=== PATIENT | female | born 1980 | race Two or more races ===

== ENCOUNTER 2018-01-12 09:05 | Emergency (ER) | payer OTHER ==
[2018-01-12 09:10] VITALS: BP 121/82; PULSE 112; TEMP 97.7; BMI 27.4
[2018-01-12] MEDS ORDERED: KETOROLAC TROMETHAMINE 60 MG/2 ML VIAL IM ONE (09:25)
[2018-01-12 09:45] LABS: URINE APPEARANCE CLOUDY; URINE BILIRUBIN NEGATIVE (<2.0 mg/dL); URINE COLOR YELLOW; URINE GLUCOSE (UA) NEGATIVE (NEGATIVE); URINE KETONE NEGATIVE (NEGATIVE); URINE LEUK ESTERASE NEGATIVE (NEGATIVE); URINE NITRITE NEGATIVE (NEGATIVE); URINE UROBILINOGEN NEGATIVE mg/dL (0.2-1.0)
[2018-01-12 09:49] LABS: URINE PROTEIN 1+ (NEGATIVE)
[2018-01-12] MEDS ORDERED: KETOROLAC TROMETHAMINE 60 MG/2 ML VIAL ONE (09:54)
[2018-01-12 10:13] LABS: EPI CELLS RARE /HPF (FEW); URINE BACTERIA RARE /hpf (NONE SEEN); URINE HYALINE CAST 4 /lpf; URINE MUCUS MANY
--- NOTE | 2018-01-12 10:50 | PDOC ---
History of Present Illness - General Chief Complaint: Back Pain Stated Complaint: BACK/LEG PAIN Time Seen by Provider: 01/12/18 09:13 History Source: Patient Exam Limitations: No Limitations - History of Present Illness Initial Comments: 01/12/18 10:42 CHIEF COMPLAINT: Lower back pain HISTORY OF PRESENT ILLNESS: 37 y/o female denies any significant medical history reports low back pain radiating down right lateral lower leg for 8 days. Denies any trauma. No neurosensory deficits, no bowel or bladder difficulty incontinence or urinary retention, no saddle anesthesia, no footdrop. No history of IVDU or history of cancer. REVIEW OF SYSTEMS: GENERAL: Afebrile, denies any weakness RESPIRATORY: No cough, wheezing, or hemoptysis. CARDIAC: No chest pain or shortness of breath MUSCULOSKELETAL: Pain to generalized lower back. No point tenderness. Pain worse on right than left. SKIN : No erythema, no bruising, no deformity. GI/: Denies any abdominal pain, no urinary difficulty, incontinence or urinary retention. RECTAL: Denies any difficulty this A.m. NEUROLOGICAL: Denies any numbness or tingling. No neurosensory deficits. PHYSICAL EXAM: GENERAL: The patient is awake, alert, and fully oriented, in no acute distress. RESPIRATORY: Lungs clear bilaterally, no rhonchi wheezes or crackles CARDIAC: S1-S2 audible, no murmur rub or gallop MUSCULOSKELETAL: Pain to generalized lower back, nonradiating, no tingling or sensory deficit. Less than 2 second cap refill, +4 popliteal and pedal pulses. GI/: Abdomen soft, nontender, nondistended. No rebound tenderness. No masses palpable. MUSCULOSKELETAL: No spinal point tenderness. Normal reflexive and no deficits to sensation or strength. RECTAL: Deferred patient with no neurological findings SKIN: Warm, Dry, normal turgor, no erythema, no edema no bruising. Past History - Past Medical History Allergies/Adverse Reactions: Allergies Allergy/AdvReac Type Severity Reaction Status Date / Time No Known Allergies Allergy Verified 01/12/18 09:07 Home Medications: Ambulatory Orders Hydrochlorothiazide 25 mg PO DAILY 07/30/12 Acetaminophen/Caffeine/Butalb [Fioricet -] 1 tab PO Q4H PRN 02/21/15 Aripiprazole [Abilify] 5 mg PO DAILY 02/21/15 Topiramate [Topamax] 100 mg PO HS 02/21/15 Cyclobenzaprine HCl [Flexeril 10 mg] 10 mg PO BID PRN #20 tablet MDD 2 01/12/18 Diclofenac Sodium 75 mg PO ASDIR 01/12/18 Escitalopram Oxalate [Lexapro -] 20 mg PO DAILY 01/12/18 Methylprednisolone [Medrol Dose Olvin] 4 mg PO ASDIR #21 tablet 01/12/18 Metoprolol Mckee/Hydrochlorothiaz [Metoprolol ER-Hctz 25-12.5 mg] 1 mg PO ASDIR 04/24 Tramadol HCl 50 mg PO ASDIR 01/12/18 COPD: No HTN: Yes Psychiatric Problems: Yes (ANXIETY.) - Surgical History Abdominal Surgery: Yes - Suicide/Smoking/Psychosocial Hx Smoking Status: No Smoking History: Never smoked Have you smoked in the past 12 months: No Number of Cigarettes Smoked Daily: 0 Information on smoking cessation initiated: No Hx Alcohol Use: No Drug/Substance Use Hx: No Substance Use Type: None *Physical Exam - Vital Signs Last Vital Signs Temp Pulse Resp BP Pulse Ox 97.7 F 112 H 18 121/82 100 01/12/18 09:08 01/12/18 09:08 01/12/18 09:08 01/12/18 09:08 01/12/18 09:08 ED Treatment Course - ADDITIONAL ORDERS Additional order review: Laboratory Results 01/12/18 09:25 Urine Color Yellow Urine Appearance Cloudy Urine pH 5.0 Ur Specific [place] 1.030 Urine Protein 1+ H Urine Glucose (UA) Negative Urine Ketones Negative Urine Blood Negative Urine Nitrite Negative Urine Bilirubin Negative Urine Urobilinogen Negative Ur Leukocyte Esterase Negative Urine WBC (Auto) 8 Urine RBC (Auto) 6 Ur Epithelial Cells Rare Urine Bacteria Rare Hyaline Casts 4 Urine Mucus Many - Medications Given in the ED: ED Medications Discontinued Medications Generic Name Dose Route Start Last Admin Trade Name Freq PRN Reason Stop Dose Admin Ketorolac Tromethamine 60 mg 01/12/18 09:25 01/12/18 09:57 Toradol Injection - IM 01/12/18 09:26 60 mg ONCE ONE Administration Medical Decision Making - Medical Decision Making 01/12/18 10:45 A/P: Patient with right lateral lower back pain radiating down right lateral leg consistent with sciatica. Denies any trauma. There is no neurosensory deficits. Denies any urinary symptoms. Urinalysis sent. Laboratory Results - last 24 hr 01/12/18 09:25 Urine Color Yellow Urine Appearance Cloudy Urine pH 5.0 Ur Specific [place] 1.030 Urine Protein 1+ H Urine Glucose (UA) Negative Urine Ketones Negative Urine Blood Negative Urine Nitrite Negative Urine Bilirubin Negative Urine Urobilinogen Negative Ur Leukocyte Esterase Negative Urine WBC (Auto) 8 Urine RBC (Auto) 6 Ur Epithelial Cells Rare Urine Bacteria Rare Hyaline Casts 4 Urine Mucus Many We'll give Toradol 60 mg IM, then reevaluate. She reports pain is decreased after the Toradol will DC patient home on Flexeril and Medrol Dosepak follow-up with her primary care doctor is already having an MRI is waiting for approval. I discussed the physical exam findings, ancillary test results and final diagnoses with the patient. I answered all of the patient's questions. The patient was satisfied with the care received and felt comfortable with the discharge plan and treatment plan. The patient will call to arrange follow-up and will return to the Emergency Department with any new, persistent or worsening symptoms. *DC/Admit/Observation/Transfer Diagnosis at time of Disposition: Sciatic leg pain - Discharge Dispostion Disposition: HOME Condition at time of disposition: Stable Decision to Admit order: No - Prescriptions Prescriptions: Cyclobenzaprine HCl [Flexeril 10 mg] 10 mg PO BID PRN #20 tablet MDD 2 PRN Reason: Pain Methylprednisolone [Medrol Dose Olvin] 4 mg PO ASDIR #21 tablet - Referrals Referrals: Ruthann Vu MD [Primary Care Provider] - - Patient Instructions Printed Discharge Instructions: DI for Back Pain With Sciatica Additional Instructions: 1. Please return to the emergency department with any numbness, tingling, weakness, numbness or tingling to groin or legs, or loss of bowel or bladder function. 2. Use pain medication as ordered. 3. Follow up with Dr. Piedra for evaluation within a week if no improvement. 4. Ice to lower back 5. Refrain from lifting anything above 10 pounds, until pain resolved. - Post Discharge Activity Forms/Work/School Notes: Back to Work
== END 2018-01-12 11:18 | disposition home or self-care (01) ==
LOC: JERFT 09:05
PROC: 3E0233Z Introduction of Anti-inflammatory into Muscle, Percutaneous Approach (ICD-10-PCS; principal; 2018-01-12)
DX: M54.41 Lumbago with sciatica, right side (principal); I10 Essential (primary) hypertension; F41.9 Anxiety disorder, unspecified
CPT/HCPCS: 81003; 81015; 96372; 99281-25

== ENCOUNTER 2019-07-13 16:08 | Emergency (ER) | payer OTHER ==
[2019-07-13 16:16] VITALS: BP 123/78; PULSE 100; TEMP 99; BMI 30.9
[2019-07-13] MEDS ORDERED: DEXAMETHASONE LIQUID 0.5 MG/5 ML PO ONE (16:16)
--- NOTE | 2019-07-13 16:22 | PDOC ---
History of Present Illness - General Stated Complaint: SORE THROAT Time Seen by Provider: 07/13/19 16:13 History Source: Patient Exam Limitations: No Limitations - History of Present Illness Initial Comments: 07/13/19 16:23 This is a 38yoF without comorbidities with sore throat for 2 days. Daughter with similar symptoms. Is this a multiple visit Asthma Patient?: No Past History - Past Medical History Allergies/Adverse Reactions: Allergies Allergy/AdvReac Type Severity Reaction Status Date / Time No Known Allergies Allergy Verified 07/13/19 16:15 Home Medications: Ambulatory Orders Hydrochlorothiazide 25 mg PO DAILY 07/30/12 Acetaminophen/Caffeine/Butalb [Fioricet -] 1 tab PO Q4H PRN 02/21/15 Aripiprazole [Abilify] 5 mg PO DAILY 02/21/15 Topiramate [Topamax] 100 mg PO HS 02/21/15 Cyclobenzaprine HCl [Flexeril 10 mg] 10 mg PO BID PRN #20 tablet MDD 2 01/12/18 Diclofenac Sodium 75 mg PO ASDIR 01/12/18 Escitalopram Oxalate [Lexapro -] 20 mg PO DAILY 01/12/18 Methylprednisolone [Medrol Dose Olvin] 4 mg PO ASDIR #21 tablet 01/12/18 Metoprolol Mckee/Hydrochlorothiaz [Metoprolol ER-Hctz 25-12.5 mg] 1 mg PO ASDIR 04/24 Tramadol HCl 50 mg PO ASDIR 01/12/18 Amoxicillin - [Amoxicillin 500mg Capsule -] 500 mg PO BID #20 capsule 07/13/19 COPD: No HTN: Yes Psychiatric Problems: Yes (ANXIETY.) - Surgical History Abdominal Surgery: Yes - Psycho Social/Smoking Cessation Hx Smoking Status: No Smoking History: Never smoked Have you smoked in the past 12 months: No Number of Cigarettes Smoked Daily: 0 Information on smoking cessation initiated: No Hx Alcohol Use: No Drug/Substance Use Hx: No Substance Use Type: None Review of Systems - Review of Systems Able to Perform ROS?: Yes Is the patient limited Turkmen proficient: No Constitutional: No: Symptoms Reported HEENTM: Yes: Throat Pain, Throat Swelling Respiratory: No: Symptoms reported Cardiac (ROS): No: Symptoms Reported ABD/GI: No: Symptoms Reported : No: Symptoms Reported Musculoskeletal: No: Symptoms Reported Integumentary: No: Symptoms Reported Neurological: No: Symptoms reported *Physical Exam - Vital Signs Last Vital Signs Temp Pulse Resp BP Pulse Ox 99 F 100 H 18 123/78 99 07/13/19 16:14 07/13/19 16:14 07/13/19 16:14 07/13/19 16:14 07/13/19 16:14 - Physical Exam General Appearance: Yes: Appropriately Dressed. No: Apparent Distress HEENT: positive: Pharyngeal Erythema, Tonsillar Exudate, Tonsillar Erythema Neck: positive: Lymphadenopathy (R), Lymphadenopathy (L) Respiratory/Chest: positive: Lungs Clear, Normal Breath Sounds Cardiovascular: positive: Regular Rhythm, S1, S2, Tachycardia. negative: Edema , Murmur Gastrointestinal/Abdominal: positive: Normal Bowel Sounds, Soft. negative: Tender Medical Decision Making - Medical Decision Making 07/13/19 16:21 A/P: 38yo F with pharyngitis 2+ tonsils b/l +tonsillar exudate +halitosis +tender anterior cervical lymphadenopathy Given high likelihood of strep infection I will treat prophylactally. Discharge Discharge - Discharge Information Problems reviewed: Yes Clinical Impression/Diagnosis: Pharyngitis Qualifiers: Pharyngitis/tonsillitis etiology: unspecified etiology Qualified Code(s): J02.9 - Acute pharyngitis, unspecified Condition: Stable Disposition: HOME - Admission No - Additional Discharge Information Prescriptions: Amoxicillin - [Amoxicillin 500mg Capsule -] 500 mg PO BID #20 capsule - Follow up/Referral - Patient Discharge Instructions Additional Instructions: Drink plenty of fluids. Salt water garggles. Take tylenol or motrin for fevers or pain. Follow general house worker's instructions for dosage. Take amoxicillin 500mg twice a day until all medication has been completed. You ER visit is incomplete until you follow up with your doctor. Buy a new toothbrush today when you sheepskin pickler your medication. On Thursday, throw away your current toothbrush and start using the new one. No sharing of utensils, cups, or drinking bottles. Return to ER for any new or worsening symptoms. - Post Discharge Activity Work/Back to School Note: Back to Work
[2019-07-13] MEDS ORDERED: DEXAMETHASONE SOD PHOSPHATE 10 MG/1 ML VIAL ONE (17:34)
== END 2019-07-13 17:40 | disposition home or self-care (01) ==
LOC: JERFT 16:08
DX: J02.9 Acute pharyngitis, unspecified (principal); I10 Essential (primary) hypertension; F41.9 Anxiety disorder, unspecified
CPT/HCPCS: 99281-25

== ENCOUNTER 2022-04-20 12:09 | Emergency (ER) | payer OTHER ==
[2022-04-20 12:15] VITALS: BP 129/81; PULSE 80; RESP 18; TEMP 98; BMI 34.3
[2022-04-20] MEDS ORDERED: ONDANSETRON 4 MG/2 ML VIAL IVPUSH ONE (12:48)
[2022-04-20] MEDS ORDERED: SODIUM CHLORIDE 0.9% 500 ML INFUS.BAG IV ONE (12:48)
[2022-04-20] MEDS ORDERED: MECLIZINE HCL 25 MG TABLET (FP) PO ONE ×2 (12:48→17:00)
[2022-04-20] MEDS ORDERED: MECLIZINE HCL 25 MG TABLET (FP) ONE ×2 (12:53→17:31)
[2022-04-20] MEDS ORDERED: ONDANSETRON 4 MG/2 ML VIAL ONE (12:53)
[2022-04-20 13:16] LABS: BASO % 0.4 % (0-2.0); EOS % 0.3 % (0-4.5); HEMATOCRIT 39.1 % (32.4-45.2); HEMOGLOBIN 13.1 GM/dL (10.7-15.3); LYMPH % 7.7 % (8-40); MCH 27.8 pg (25.7-33.7); MCHC 33.5 g/dl (32.0-36.0); MEAN PLT VOLUME 8.5 fl (7.5-11.1); MONO % 4.2 % (3.8-10.2); NEUT % 87.4 % (42.8-82.8); PLATELET COUNT 364 10^3/uL (134-434); RBC 4.71 M/mm3 (3.60-5.2); RDW 15.7 % (11.6-15.6); WHITE BLOOD COUNT 16.3 K/mm3 (4.0-10.0)
[2022-04-20 13:20] LABS: INR 1.01 (0.83-1.09); PROTHROMBIN TIME (PATIENT) 11.6 SEC (9.7-13.0)
[2022-04-20 13:27] LABS: BLOOD UREA NITROGEN 11.5 mg/dL (7-18); CALCIUM 9.1 mg/dL (8.5-10.1)
[2022-04-20 13:30] LABS: CREATININE 0.7 mg/dL (0.55-1.3)
[2022-04-20 13:32] LABS: BILIRUBIN,TOTAL 0.3 mg/dL (0.2-1); TOT PROT 7.6 g/dl (6.4-8.2)
[2022-04-20] MEDS ORDERED: ACETAMINOPHEN 1000 MG/100 ML BAG IVPB ONE (14:15)
[2022-04-20] MEDS ORDERED: diazePAM CARPU-JECT 10 MG/2 ML DISP.SYRIN IVPUSH ONE ×2 (14:35→17:00)
[2022-04-20] MEDS ORDERED: ASPIRIN 81 MG CHEWABLE TABLETS PO ONE (14:35)
[2022-04-20] MEDS ORDERED: ASPIRIN 81 MG CHEWABLE TABLETS ONE (14:43)
[2022-04-20] MEDS ORDERED: diazePAM CARPU-JECT 10 MG/2 ML DISP.SYRIN ONE ×2 (14:43→17:31)
[2022-04-20] MEDS ORDERED: ACETAMINOPHEN INJECTION 100 ML IVPB ONE (14:43)
[2022-04-20 15:00] LABS: PH,URINE 5.5 (5.0-8.0); URINE APPEARANCE CLEAR; URINE BILIRUBIN NEGATIVE (NEGATIVE); URINE COLOR YELLOW; URINE GLUCOSE (UA) NEGATIVE (NEGATIVE); URINE KETONE NEGATIVE (NEGATIVE); URINE LEUK ESTERASE NEGATIVE (NEGATIVE); URINE NITRITE NEGATIVE (NEGATIVE); URINE PROTEIN NEGATIVE (NEGATIVE); URINE UROBILINOGEN 0.2 mg/dL (0.2-1.0)
[2022-04-20] MEDS ORDERED: VALPROATE SODIUM 500 MG/5 ML VIAL IVPB ONE (16:11)
[2022-04-20] MEDS ORDERED: VALPROATE SODIUM 500 MG/5 ML VIAL ONE (17:32)
== END 2022-04-20 19:59 | disposition home or self-care (01) ==
LOC: JER 12:09
PROC: 3E0333Z Introduction of Anti-inflammatory into Peripheral Vein, Percutaneous Approach (ICD-10-PCS; principal; 2022-04-20)
PROC: 3E033NZ Introduction of Analgesics, Hypnotics, Sedatives into Peripheral Vein, Percutaneous Approach (ICD-10-PCS; 2022-04-20)
PROC: 3E033NZ Introduction of Analgesics, Hypnotics, Sedatives into Peripheral Vein, Percutaneous Approach (ICD-10-PCS; 2022-04-20)
PROC: 3E033GC Introduction of Other Therapeutic Substance into Peripheral Vein, Percutaneous Approach (ICD-10-PCS; 2022-04-20)
PROC: 3E033GC Introduction of Other Therapeutic Substance into Peripheral Vein, Percutaneous Approach (ICD-10-PCS; 2022-04-20)
DX: R42 Dizziness and giddiness (principal)
CPT/HCPCS: 36415; 70450-TC; 70551-TC; 80053; 81003; 84484; 84703; 85025; 85610; 87086; 93005; 93010; 99285-25